=== PATIENT | male | born 1935 | race Caucasian/White ===

== ENCOUNTER 2018-02-09 05:04 | Emergency (ER) | payer MEDICARE, MEDICAID ==
[~2018-02-09] VITALS: Ht 170.2 cm; Wt 62.0 kg
[2018-02-09] MEDS ORDERED: LORAZEPAM 2MG/ML CPJ IV ONE ×2 (05:15→06:00)
[2018-02-09] MEDS ORDERED: MORPHINE SULFATE 4 MG/ML CPJ (NOT FOR IM USE) IV ONE ×2 (05:15→06:00)
[2018-02-09] MEDS ORDERED: FUROSEMIDE 40MG/4ML VIAL IVP ONE (06:00)
[2018-02-09] MEDS ORDERED: ONDANSETRON HCL 4MG/2ML VIAL IV PRN (08:15)
[2018-02-09] MEDS ORDERED: IPRATROPIUM/ALBUTEROL 0.5-3(2.5)MG/3ML NEB INH PRN (08:15)
[2018-02-09] MEDS ORDERED: TRAMADOL 50MG TABLET PO PRN (08:15)
[2018-02-09] MEDS ORDERED: LORAZEPAM 2MG/ML CPJ IV PRN (08:15)
[2018-02-09] MEDS ORDERED: NITROGLYCERIN 0.4MG TABLET SL SL PRN (08:15)
[2018-02-09] MEDS ORDERED: ACETAMINOPHEN 650MG SUPP PR PRN (08:15)
[2018-02-09] MEDS ORDERED: MORPHINE SULFATE 2 MG/ML CPJ (NOT FOR IM USE) IV PRN (08:15)
[2018-02-09] MEDS ORDERED: ZOLPIDEM TARTRATE 5MG TABLET PO PRN (08:15)
[2018-02-09] MEDS ORDERED: SCOPOLAMINE HYDROBROMIDE PATCH 72HR TD SCH (09:00)
[2018-02-09 10:47] VITALS: BP 102/61
== END 2018-02-09 11:37 | disposition left against medical advice (07) ==
LOC: ER 05:04 → ENRESERV 06:59 → CANRESERV 06:59 → ER 11:37 → CANBEDREQ 16:07
DX: J96.90 Respiratory failure, unspecified, unspecified whether with hypoxia or hypercapnia (principal); I50.9 Heart failure, unspecified
CPT/HCPCS: 51702; 96374; 96375; 99284; J1940; J2060; J2270